=== PATIENT | male | born 1950 ===

== ENCOUNTER 2021-07-20 06:00 | Outpatient (RCR) | payer MEDICARE, SELFPAY | END 2021-07-25 23:59 | disposition home or self-care (01) | LOC: GPT 06:00 | PROVIDERS: Referring Provider Orthopaedic Surgery; Visit Provider Orthopaedic Surgery | DX: M12.811 Other specific arthropathies, not elsewhere classified, right shoulder (principal) | CPT/HCPCS: 97110; 97162 ==

== ENCOUNTER 2021-07-26 06:00 | Outpatient (RCR) | payer MEDICARE, SELFPAY | END 2021-08-24 23:59 | disposition home or self-care (01) | LOC: GPT 06:00 | PROVIDERS: Referring Provider Orthopaedic Surgery; Visit Provider Orthopaedic Surgery | DX: M12.811 Other specific arthropathies, not elsewhere classified, right shoulder (principal) | CPT/HCPCS: 97110; 97140; G0283 ==